=== PATIENT | male | born 1980 | race Caucasian/White ===

== ENCOUNTER 2019-07-30 08:53 | Emergency (ER) | payer BC ==
[~2019-07-30] VITALS: Ht 185.4 cm; Wt 99.8 kg
[2019-07-30] MEDS ORDERED: KETOROLAC TROMETHAMINE 30 MG/ML VIAL IV STA (09:09)
[2019-07-30] MEDS ORDERED: ONDANSETRON HCL INJ 2MG/ML 2ML 2 MG/ML VIAL IV STA (09:09)
[2019-07-30] MEDS ORDERED: SODIUM CHLORIDE 0.9% 1000ML 1,000 ML IV STA (09:09)
[2019-07-30] MEDS ORDERED: ORPHENADRINE CITRATE 30 MG/ML VIAL IV ONE (09:15)
[2019-07-30 09:34] LABS: BASOPHILS % 0.6 % (0.0-1.0); EOSINOPHILS # (AUTO) 0.2 (0.0-0.4); EOSINOPHILS % 2.6 % (0.0-6.0); HEMATOCRIT 44.7 % (38.2-49.6); HEMOGLOBIN 15.1 g/dL (14.0-18.0); LYMPHOCYTES # (AUTO) 1.6 (1.0-3.2); LYMPHOCYTES % 23.1 % (18.0-39.1); MEAN CORPUSCULAR HEMOGLOBIN 30.6 pg (28-32); MEAN CORPUSCULAR HGB CONC 33.8 g/dL (31-35); MEAN CORPUSCULAR VOLUME 90.7 fL (81-99); MONOCYTES # (AUTO) 0.6 (0.2-0.8); MONOCYTES % 7.8 % (4.4-11.3); NEUTROPHILS # (AUTO) 4.6 (2.1-6.9); PLATELET COUNT 316 x10e3/uL (140-360); RED BLOOD COUNT 4.93 x10e6/uL (4.3-5.7); RED CELL DISTRIBUTION WIDTH 12.8 % (11.7-14.4)
[2019-07-30 10:00] LABS: ALANINE AMINOTRANSFERASE 73 IU/L (0-55); ALBUMIN 3.8 g/dL (3.5-5.0); ALBUMIN/GLOBULIN RATIO 1.1 (0.8-2.0); ALKALINE PHOSPHATASE 53 IU/L (40-150); ANION GAP 12.6 mmol/L (8-16); BLOOD UREA NITROGEN 19 mg/dL (7-26); BUN/CREATININE RATIO 20 (6-25); CALCIUM 9.3 mg/dL (8.4-10.2); CARBON DIOXIDE 23 mmol/L (22-29); CHLORIDE 109 mmol/L (98-107); CREATINE KINASE 119 IU/L (30-200); CREATININE, SERUM 0.95 mg/dL (0.72-1.25); EST GLOMERULAR FILTRATION RATE > 60 ML/MIN (60-); GLUCOSE 96 mg/dL (74-118); MAGNESIUM 1.9 MG/DL (1.3-2.1); POTASSIUM 4.6 mmol/L (3.5-5.1); SODIUM 140 mmol/L (136-145)
[2019-07-30 10:09] LABS: INR 0.91; PROTHROMBIN TIME 12.8 seconds (11.9-14.5)
[2019-07-30 10:10] LABS: PARTIAL THROMBOPLASTIN TIME 27.1 seconds (23.8-35.5)
--- NOTE | 2019-07-30 11:29 | Diagnostic Imaging Report ---
EXAM: CT Chest WITH contrast- Pulmonary Embolism Protocol INDICATION: Pleuritic chest pain COMPARISON: None TECHNIQUE: Chest was scanned utilizing a multidetector helical scanner from the lung apex through the level of the diaphragm after administration of IV contrast. Thin section reconstructions were obtained with special concentration on the pulmonary arteries. Coronal and sagittal reformations were obtained. Pulmonary embolism protocol was performed. IV CONTRAST: 100 cc of Isovue 370 RADIATION DOSE: Total DLP: 558 mGy*cm Dose modulation, iterative reconstruction, and/or weight based adjustment of the mA/kV was utilized to reduce the radiation dose to as low as reasonably achievable. COMPLICATIONS: None FINDINGS: LINES/ TUBES: None. PULMONARY ARTERIES: No filling defect is identified within the pulmonary arteries to the segmental level. The subsegmental pulmonary arteries are not well opacified. Main pulmonary artery measures 2.9 cm in diameter. LUNGS AND AIRWAYS: The central airways are patent. No focal consolidation or pulmonary edema. 4 mm posterior left upper lobe pulmonary nodule. PLEURA: The pleural spaces are clear. HEART AND MEDIASTINUM: The thyroid gland is normal. No mediastinal, hilar or axillary lymphadenopathy. The heart is normal in size.. There is no pericardial effusion. No right heart strain. UPPER ABDOMEN: No acute findings. BONES: No acute osseous injury. No suspicious lytic or blastic lesions. SOFT TISSUES: Unremarkable. IMPRESSION: No pulmonary embolism. No focal pneumonia or pulmonary edema. 4 mm left upper lobe pulmonary nodule. If the patient is low risk, no further follow-up is necessary. If the patient is high risk, chest CT at 12 months is optional. Signed by: Martina Alvarez MD on 07/30/2019 11:25 AM
[2019-07-30 11:43] VITALS: BP 101/63
[2019-07-30] MEDS ORDERED: SODIUM CHLORIDE 0.9% 50ML 50 ML ONE (12:00)
[2019-07-30] MEDS ORDERED: IOPAMIDOL 370 MG/ML 200 ML INFUS..BTL INJ ONE (12:00)
== END 2019-07-30 11:51 | disposition home or self-care (01) ==
LOC: ER 08:53
DX: S29.012A Strain of muscle and tendon of back wall of thorax, initial encounter (principal); R91.8 Other nonspecific abnormal finding of lung field; F17.210 Nicotine dependence, cigarettes, uncomplicated
CPT/HCPCS: 36415; 71260; 80053; 82550; 82553; 83735; 83880; 84484; 85025; 85610; 85730; 93005; 99284; J1885; J2360; J2405; J7030; Q9967

== ENCOUNTER → 2021-04-21 | Outpatient (CLI) | payer OTHER ==
[~2021-04-21] MED LIST: COVID-19 VACC, MRNA(MODERNA)/PF 100 MCG/0.5 ML VIAL IM ONE
== END ==
LOC: VACCPMC 16:21
DX: Z23 Encounter for immunization (principal); Z20.822 Contact with and (suspected) exposure to COVID-19
CPT/HCPCS: 91301

== ENCOUNTER → 2021-12-08 | Outpatient (CLI) | payer BC ==
[~2021-12-08] MED LIST changes: -COVID-19 VACC, MRNA(MODERNA)/PF 100 MCG/0.5 ML VIAL IM ONE; +IOPAMIDOL 370 MG/ML 100 ML INFUS..BTL INJ ONE
== END ==
LOC: CT 15:58
PROVIDERS: ATTEND Family Medicine
DX: R91.8 Other nonspecific abnormal finding of lung field (principal)
CPT/HCPCS: 71260; Q9967